=== PATIENT | male | born 1990 | race Caucasian/White ===

== ENCOUNTER 2018-11-26 07:42 | Emergency (ER) | payer OTHER ==
[~2018-11-26] VITALS: Ht 180.3 cm; Wt 83.2 kg
[2018-11-26] MEDS ORDERED: KETOROLAC 30 MG/1 ML ONE (07:53)
[2018-11-26] MEDS ORDERED: DIAZEPAM 5 MG TABLET ONE ×2 (07:53→08:03)
[2018-11-26] MEDS ORDERED: DIAZEPAM 5 MG TABLET PO ONE (08:00)
[2018-11-26] MEDS ORDERED: KETOROLAC 30 MG/1 ML IM ONE (08:00)
--- NOTE | 2018-11-26 08:59 | NUR ---
pt laying on gurney sleeping, responds approp to staff, NAD while at rest, comfort measures provided, call light within reach.
--- NOTE | 2018-11-26 09:06 | NUR ---
pt to CT
--- NOTE | 2018-11-26 09:57 | NUR ---
pt continues to lay on gurney awake & more comfortable, texting on cell phone, responds approp to staff, NAD, comfort measures provided, call light within reach.
[2018-11-26] MEDS ORDERED: ONDANSETRON ODT 4 MG ONE (10:10)
[2018-11-26] MEDS ORDERED: HYDROmorphone 2 MG/ML, 1ML ONE (10:10)
[2018-11-26] MEDS ORDERED: ONDANSETRON ODT 4 MG PO ONE (10:30)
[2018-11-26] MEDS ORDERED: HYDROmorphone 2 MG/ML, 1ML IM ONE (10:30)
--- NOTE | 2018-11-26 10:59 | NUR ---
pt ambulated steadily to BR with CGA- ERP aware.
[2018-11-26 11:00] VITALS: BP 147/90
--- NOTE | 2018-11-26 11:00 | NUR ---
pt more upright on karina awake & comfortable, responds approp to staff, NAD, comfort measures provided, family arrived at BS, call light within reach.
--- NOTE | 2018-11-26 11:34 | NUR ---
Patient given discharge instructions and they have confirmed that they understand the instructions. Patient ambulatory with steady gait.
== END 2018-11-26 11:35 | disposition home or self-care (01) ==
LOC: ED 10:00
DX: S39.012A Strain of muscle, fascia and tendon of lower back, initial encounter (principal); M51.26 Other intervertebral disc displacement, lumbar region; X50.9XXA Other and unspecified overexertion or strenuous movements or postures, initial encounter; Y93.89 Activity, other specified; Y92.89 Other specified places as the place of occurrence of the external cause; Y99.8 Other external cause status
CPT/HCPCS: 72131; 96372; 99284; J1170; J1885; Q0162